=== PATIENT | female | born 1960 | race Two or more races ===

== ENCOUNTER 2019-08-16 21:03 | Emergency (ER) | payer SELFPAY ==
[~2019-08-16] VITALS: Ht 154.9 cm; Wt 83.5 kg
[2019-08-16 21:17] VITALS: BP 150/83; Ht 154.9 cm; Wt 83.5 kg
== END 2019-08-16 21:50 | disposition home or self-care (01) ==
LOC: ED 21:03
DX: S60.454A Superficial foreign body of right ring finger, initial encounter (principal); Z88.0 Allergy status to penicillin; X58.XXXA Exposure to other specified factors, initial encounter; Y93.89 Activity, other specified; Y92.89 Other specified places as the place of occurrence of the external cause; Y99.8 Other external cause status

== ENCOUNTER 2019-09-23 19:27 | Emergency (ER) | payer SELFPAY ==
[~2019-09-23] VITALS: Ht 152.4 cm; Wt 77.1 kg
[2019-09-23 19:35] VITALS: Ht 152.4 cm; Wt 77.1 kg
[2019-09-23 20:20] LABS: BASOPHIL % 0.8 % (0-2); PLATELET COUNT 402 x10^3mcL (130-400); RED CELL DISTRIBUTION WIDTH 15.7 % (11.5-14.5)
[2019-09-23 20:53] LABS: FREE T4 0.81 ng/dL (0.76-1.46); FREE THYROXINE INDEX 1.4 ug/dL (1.4-4.5); T4(THYROXINE) 4.9 ug/dL (4.7-13.3)
[2019-09-23 20:55] LABS: T3 TOTAL 1.27 ng/mL
[2019-09-23 21:06] LABS: CALCIUM 9.2 mg/dL (8.5-10.1); CARBON DIOXIDE 29.7 mmol/L (21-32); CHLORIDE SERUM 101 mmol/L (98-107); CREATININE SERUM 0.8 mg/dL (0.6-1.0); GFR1 > 60 mL/min; GLUCOSE SERUM 175 mg/dL (74-106); POTASSIUM SERUM 4.4 mmol/L (3.5-5.1); SODIUM SERUM 138 mmol/L (136-145)
[2019-09-23 21:11] LABS: ALBUMIN 3.7 g/dL (3.4-5.0); ALKALINE PHOSPHATASE 96 U/L (46-116); ALT/SGPT 24 U/L (14-59); AST/SGOT 11 U/L (15-37); BILIRUBIN TOTAL 0.14 mg/dL (0.20-1.00); LIPASE 139 IU/L (73-393); TOTAL PROTEIN, SERUM 7.5 g/dL (6.4-8.2)
[2019-09-23 22:16] VITALS: BP 135/89
== END 2019-09-23 22:26 | disposition home or self-care (01) ==
LOC: ED 19:27
PROVIDERS: Emergency Medicine
DX: M19.90 Unspecified osteoarthritis, unspecified site (principal); R53.1 Weakness; G89.29 Other chronic pain; M54.5 Low back pain; E03.9 Hypothyroidism, unspecified; Z88.0 Allergy status to penicillin
CPT/HCPCS: 84439

== ENCOUNTER 2020-01-23 17:22 | Emergency (ER) | payer SELFPAY ==
[~2020-01-23] VITALS: Ht 152.4 cm; Wt 85.7 kg
[2020-01-23 20:32] VITALS: BP 1325/96
== END 2020-01-23 20:32 | disposition home or self-care (01) ==
LOC: ED 17:22
DX: S33.5XXA Sprain of ligaments of lumbar spine, initial encounter (principal); S80.02XA Contusion of left knee, initial encounter; S80.01XA Contusion of right knee, initial encounter; Z88.0 Allergy status to penicillin; Z98.890 Other specified postprocedural states; W17.89XA Other fall from one level to another, initial encounter; Y93.89 Activity, other specified; Y92.89 Other specified places as the place of occurrence of the external cause; Y99.8 Other external cause status
CPT/HCPCS: J1885

== ENCOUNTER 2020-02-04 03:58 | Emergency (ER) | payer SELFPAY ==
[~2020-02-04] VITALS: Ht 152.4 cm; Wt 87.1 kg
[2020-02-04 04:00] VITALS: BP 145/95; Ht 152.4 cm; Wt 87.1 kg
== END 2020-02-04 04:54 | disposition home or self-care (01) ==
LOC: ED 03:58
DX: J00 Acute nasopharyngitis [common cold] (principal); G89.29 Other chronic pain; M19.90 Unspecified osteoarthritis, unspecified site; Z20.828 Contact with and (suspected) exposure to other viral communicable diseases; Z90.49 Acquired absence of other specified parts of digestive tract; Z88.0 Allergy status to penicillin; Z87.19 Personal history of other diseases of the digestive system; Z98.890 Other specified postprocedural states
CPT/HCPCS: U0003

== ENCOUNTER 2020-03-23 06:28 | Emergency (ER) | payer SELFPAY ==
[~2020-03-23] VITALS: Ht 152.4 cm; Wt 81.6 kg
[2020-03-23 07:02] VITALS: Ht 152.4 cm; Wt 81.6 kg
[2020-03-23 08:13] VITALS: BP 142/86
== END 2020-03-23 08:13 | disposition home or self-care (01) ==
LOC: ED 06:28
DX: J40 Bronchitis, not specified as acute or chronic (principal); Z20.828 Contact with and (suspected) exposure to other viral communicable diseases; Z98.890 Other specified postprocedural states
CPT/HCPCS: U0003

== ENCOUNTER 2020-04-26 19:45 | Emergency (ER) | payer OTHER ==
[~2020-04-26] VITALS: Ht 157.5 cm; Wt 87.1 kg
[2020-04-26 19:54] VITALS: Ht 157.5 cm; Wt 87.1 kg
[2020-04-26 23:45] VITALS: BP 125/82
== END 2020-04-26 23:45 | disposition home or self-care (01) ==
LOC: ED 19:45
DX: S80.02XA Contusion of left knee, initial encounter (principal); S80.01XA Contusion of right knee, initial encounter; S50.02XA Contusion of left elbow, initial encounter; S50.01XA Contusion of right elbow, initial encounter; G89.29 Other chronic pain; M19.90 Unspecified osteoarthritis, unspecified site; Z87.442 Personal history of urinary calculi; Z98.890 Other specified postprocedural states; W18.39XA Other fall on same level, initial encounter; Y93.89 Activity, other specified; Y92.89 Other specified places as the place of occurrence of the external cause; Y99.8 Other external cause status
CPT/HCPCS: J1885